=== PATIENT | male | born 1990 | race American Indian/Alaskan Native ===

== ENCOUNTER 2022-01-06 09:13 | Emergency (ER) | payer SELFPAY ==
[2022-01-06] MEDS ORDERED: predniSONE 20 MG TAB PO ONE (09:59)
--- NOTE | 2022-01-06 09:59 | Emergency Department Report ---
ED General Adult HPI - General Chief complaint: Skin Rash Stated complaint: RASH ON RT FOOT/LEFT HAND Time Seen by Provider: 01/06/22 09:55 Source: patient Mode of arrival: Ambulatory Limitations: No Limitations - Related Data Previous Rx's Medication Instructions Recorded Last Taken Type predniSONE [Deltasone] 20 mg PO DAILY #5 tablet 01/06/22 Unknown Rx Allergies Allergy/AdvReac Type Severity Reaction Status Date / Time No Known Allergies Allergy Verified 01/06/22 09:47 ED Review of Systems ROS: Stated complaint: RASH ON RT FOOT/LEFT HAND Other details as noted in HPI Comment: All other systems reviewed and negative ED Past Medical Hx - Past Medical History Previous Medical History?: No - Surgical History Past Surgical History?: No - Family History Family history: no significant - Social History Smoking Status: Never Smoker Substance Use Type: Marijuana - Medications Home Medications: Home Medications Medication Instructions Recorded Confirmed Last Taken Type predniSONE [Deltasone] 20 mg PO DAILY #5 tablet 01/06/22 Unknown Rx ED Physical Exam - General Limitations: No Limitations General appearance: alert, in no apparent distress - Head Head exam: Present: atraumatic, normocephalic - Eye Eye exam: Present: normal appearance - ENT ENT exam: Present: mucous membranes moist - Neck Neck exam: Present: normal inspection - Respiratory Respiratory exam: Present: normal lung sounds bilaterally. Absent: respiratory distress - Cardiovascular Cardiovascular Exam: Present: regular rate, normal rhythm. Absent: systolic murmur, diastolic murmur, rubs, gallop - GI/Abdominal GI/Abdominal exam: Present: soft, normal bowel sounds - Rectal Rectal exam: Present: deferred - Extremities Exam Extremities exam: Present: normal inspection - Back Exam Back exam: Present: normal inspection - Neurological Exam Neurological exam: Present: alert, oriented X3 - Psychiatric Psychiatric exam: Present: normal affect, normal mood - Skin Skin exam: Present: warm, dry, intact, normal color, rash ED Course Vital Signs 01/06/22 01/06/22 09:47 10:52 Temperature 97.9 F 97.9 F Pulse Rate 85 90 Respiratory 16 16 Rate Blood Pressure 117/77 101/77 [Left] O2 Sat by Pulse 99 97 Oximetry ED Medical Decision Making - Medical Decision Making Vital Signs 01/06/22 01/06/22 09:47 10:52 Temperature 97.9 F 97.9 F Pulse Rate 85 90 Respiratory 16 16 Rate Blood Pressure 117/77 101/77 [Left] O2 Sat by Pulse 99 97 Oximetry - Differential Diagnosis rash; ro fx Critical care attestation.: If time is entered above; I have spent that time in minutes in the direct care of this critically ill patient, excluding procedure time. ED Disposition Clinical Impression: Rash Foot sprain Qualifiers: Encounter type: initial encounter Laterality: right Qualified Code(s): S93.601A - Unspecified sprain of right foot, initial encounter Chronic hand pain Qualifiers: Laterality: left Qualified Code(s): M79.642 - Pain in left hand; G89.29 - Other chronic pain Disposition: 01 HOME / SELF CARE / HOMELESS Is pt being admited?: No Does the pt Need Aspirin: No Condition: Stable Instructions: Rash, Adult Additional Instructions: MED ORDERED TODAY FOR RASH MOTRIN OR TYLENOL FOR HAND AND FOOT PAIN XRAY NORMAL FOLLOW UP WITH PCP REFERRAL BELOW Prescriptions: predniSONE [Deltasone] 20 mg PO DAILY #5 tablet Referrals: PRIMARY MD ARCHIE [Primary Care Provider] - 3-5 Days DAMIEN DE LA VEGA MD [Staff Physician] - 3-5 Days Time of Disposition: 10:45
--- NOTE | 2022-01-06 10:32 | XRay Report ---
RIGHT FOOT 3 VIEWS INDICATION / CLINICAL INFORMATION: PAIN R FOOT AFTER DROPPING SOMETHING ON IT. COMPARISON: None available. FINDINGS: BONES / JOINT(S): No acute fracture or subluxation. No significant arthritis. SOFT TISSUES: No significant abnormality. ADDITIONAL FINDINGS: None. IMPRESSION: No acute abnormality. Signer Name: Ervin Nj MD Signed: 01/06/2022 10:27 AM Workstation Name: [id number]
[2022-01-06 10:54] VITALS: BP 101/77
== END 2022-01-06 10:55 | disposition home or self-care (01) ==
LOC: ED 09:13
DX: R21 Rash and other nonspecific skin eruption (principal); S93.601A Unspecified sprain of right foot, initial encounter; M79.642 Pain in left hand; G89.29 Other chronic pain; F12.10 Cannabis abuse, uncomplicated; X58.XXXA Exposure to other specified factors, initial encounter; Y93.89 Activity, other specified; Y92.89 Other specified places as the place of occurrence of the external cause; Y99.8 Other external cause status
CPT/HCPCS: 99283